=== PATIENT | female | born 1970 | race Two or more races ===

== ENCOUNTER 2017-11-14 15:29 | Emergency (ER) | payer SELFPAY ==
--- NOTE | 2017-11-14 16:27 | CR ---
Clinical history: 47-year-old female right hand swelling after injury. Interpretation: Soft tissue swelling over the ulnar aspect of the wrist. No sign of underlying fracture right wrist or hand. Early arthritic changes involving the interphalangeal/DIP joints. No foreign bodies or inflammatory p eriostitis. CONCLUSION: No fracture or dislocation right hand or wrist.
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
== END 2017-11-14 19:10 | disposition home or self-care (01) ==
LOC: DL.ED 15:29
DX: S67.21XA Crushing injury of right hand, initial encounter (principal); S63.610A Unspecified sprain of right index finger, initial encounter; J45.909 Unspecified asthma, uncomplicated; E11.40 Type 2 diabetes mellitus with diabetic neuropathy, unspecified; F41.9 Anxiety disorder, unspecified; I10 Essential (primary) hypertension; Z79.82 Long term (current) use of aspirin; Z79.899 Other long term (current) drug therapy; Y04.8XXA Assault by other bodily force, initial encounter; Y07.03 Male partner, perpetrator of maltreatment and neglect
CPT/HCPCS: 29125; 73130-RT; 99283

== ENCOUNTER 2017-11-16 00:17 | Emergency (ER) | payer SELFPAY ==
[2017-11-16] MEDS ORDERED: Acetaminophen/HYDROcodone 325-5 MG Tab PO ONE (01:07)
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
== END 2017-11-16 01:15 | disposition home or self-care (01) ==
LOC: DL.ED 00:17
DX: M79.641 Pain in right hand (principal); I10 Essential (primary) hypertension; E11.40 Type 2 diabetes mellitus with diabetic neuropathy, unspecified; Z79.82 Long term (current) use of aspirin
CPT/HCPCS: 99283; A9270

== ENCOUNTER 2017-12-28 09:34 | Emergency (ER) | payer MEDICAID ==
--- NOTE | 2017-12-28 09:43 | EDM.PDOC ---
ED HPI GENERAL MEDICAL PROBLEM - General Stated Complaint: [id number] RIGHT HAND/ARM PAIN SWOLLEN Time Seen by Provider: 12/28/17 10:23 Source of Information: Reports: Patient, RN, RN Notes Reviewed History Limitations: Reports: No Limitations - History of Present Illness INITIAL COMMENTS - FREE TEXT/NARRATIVE: Pt to ER with c/o burning pain in the right arm, hand, shoulder. She states she has had previous problems with pain in the hand and arm and is currently doctoring with Dr. Dunn for it. She states she has been moving furniture into an apartment this weekend and has done too much lifting with it. She states the pain is 8/10, and feels the wrist and hand are more swollen than usual. Patient states she has an upcoming appointment with Rheumatology. She states she has Voltaren and steroids prescribed from Dr. Dunn that she has been using and it has not been helping. Onset: Gradual Location: Reports: Upper Extremity, Right Quality: Reports: Burning Severity: Moderate Improves with: Reports: None Worsens with: Reports: None Right Wrist Pain Score (Numeric/FACES): 8 - Related Data Allergies Allergy/AdvReac Type Severity Reaction Status Date / Time No Known Allergies Allergy Verified 12/28/17 10:04 Home Meds: Home Meds Aspirin 1 tab PO DAILY 11/06/17 [History] Diclofenac Sodium [Voltaren] 1 appful TOP ASDIRECTED PRN 12/28/17 [History] QUEtiapine [SEROquel] 25 mg PO BEDTIME 12/28/17 [History] Sertraline [Zoloft] 25 mg PO DAILY 12/28/17 [History] Past Medical History Cardiovascular History: Reports: Hypertension 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: Reports: Asthma 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: Musculoskeletal History: Reports: RA Neurological History: Reports: Neuropathy, Diabetic Psychiatric History: Reports: Anxiety Endocrine/Metabolic History: Reports: Diabetes, Type II - Past Surgical History Female Surgical History: Reports: Section, Hysterectomy Musculoskeletal Surgical History: Reports: Arthroscopic Knee Other Musculoskeletal Surgeries/Procedures:: bilateral Social & Family History - Family History Family Medical History: Noncontributory - Caffeine Use Caffeine Use: Reports: None Review of Systems - Review of Systems Review Of Systems: ROS reveals no pertinent complaints other than HPI. ED EXAM, GENERAL - Physical Exam Exam: See Below Exam Limited By: No Limitations General Appearance: Alert, WD/WN, Mild Distress Eye Exam: Bilateral Eye: EOMI, Normal Inspection Ears: Normal External Exam Nose: Normal Inspection Throat/Mouth: Normal Inspection, Normal Voice, No Airway Compromise Head: Atraumatic, Normocephalic Neck: Normal Inspection, Supple, Non-Tender, Full Range of Motion Respiratory/Chest: No Respiratory Distress, Lungs Clear, Normal Breath Sounds, No Accessory Muscle Use, Chest Non-Tender Cardiovascular: Normal Peripheral Pulses, Regular Rate, Rhythm, No Edema, No Gallop, No JVD, No Murmur, No Rub Peripheral Pulses: 2+: Radial (L), Radial (R) GI/Abdominal: Normal Bowel Sounds, Soft, Non-Tender (Female) Exam: Deferred Rectal (Female) Exam: Deferred Back Exam: Normal Inspection, Full Range of Motion Extremities: Normal Inspection, No Pedal Edema, Normal Capillary Refill, Joint Swelling (right wrist), Arm Pain (right), Limited Range of Motion (right) Neurological: Alert, Oriented, CN II-XII Intact, Normal Cognition, Normal Gait, Normal Reflexes, No Motor/Sensory Deficits Psychiatric: Anxious Skin Exam: Warm, Dry, Intact, Normal Color, No Rash Lymphatic: No Adenopathy Course - Vital Signs Last Recorded V/S: Last Vital Signs Temp 97.8 F 12/28/17 10:00 Pulse 78 12/28/17 10:00 Resp 18 12/28/17 10:00 BP 107/57 L 12/28/17 10:00 Pulse Ox 100 12/28/17 10:00 Departure - Departure Time of Disposition: 10:49 Disposition: Home, Self-Care 01 Condition: Fair Clinical Impression: Nerve pain Pain in hand Qualifiers: Laterality: right Qualified Code(s): M79.641 - Pain in right hand - Discharge Information *PRESCRIPTION DRUG MONITORING PROGRAM REVIEWED*: Yes *COPY OF PRESCRIPTION DRUG MONITORING REPORT IN PATIENT LIANET: No Instructions: Neuropathic Pain, Joint Pain, [id number] Referrals: Nimo Dunn MD [Primary Care Provider] - Forms: ED Department Discharge Additional Instructions: RX: Gabapentin Follow up with Dr. Dunn this week. Rest, ice and heat as tolerated
== END 2017-12-28 11:05 | disposition home or self-care (01) ==
LOC: DL.ED 09:34
DX: M79.641 Pain in right hand (principal); M79.2 Neuralgia and neuritis, unspecified; I10 Essential (primary) hypertension; E11.40 Type 2 diabetes mellitus with diabetic neuropathy, unspecified
CPT/HCPCS: 99283

== ENCOUNTER 2018-02-08 17:01 | Emergency (ER) | payer MEDICAID ==
[2018-02-08 18:36] LABS: ANION GAP 12.7; CHLORIDE,CL 102 mmol/L (101-111); SODIUM,NA 137 mmol/L (135-145)
--- NOTE | 2018-02-08 18:46 | EDM.PDOC ---
<Margret Figueroa - Last Filed: 02/08/18 19:07> ED HPI GENERAL MEDICAL PROBLEM - General Chief Complaint: Upper Extremity Injury/Pain Stated Complaint: NEEDS TO HAVE FINGERS LOOKED AT [id number] Time Seen by Provider: 02/08/18 17:43 Source of Information: Reports: Patient, RN, RN Notes Reviewed History Limitations: Reports: No Limitations - History of Present Illness INITIAL COMMENTS - FREE TEXT/NARRATIVE: Pt to Er with c/o sores to middle and ring finger (left hand), middle and ring finger of right hand. Pt states on 01/17/18 she was seen in the ER and tx for trigger finger and the fingers were splinted. She was unable to be seen at [facility], and has an appt to be seen by hand surgeon. She states she has developed sores from the splint. Admits to fever, chills, nausea, dizziness. 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 rotator cuff Neurological History: Reports: Neuropathy, Diabetic Psychiatric History: Reports: Anxiety Endocrine/Metabolic History: Reports: Diabetes, Type II - Past Surgical History GI Surgical History: Reports: Appendectomy Female Surgical History: Reports: Section, Hysterectomy Musculoskeletal Surgical History: Reports: Arthroscopic Knee Other Musculoskeletal Surgeries/Procedures:: bilateral Social & Family History - Family History Family Medical History: Noncontributory - Tobacco Use Smoking Status *Q: Unknown Ever Smoked - Caffeine Use Caffeine Use: Reports: Coffee, Soda - Recreational Drug Use Recreational Drug Use: No Review of Systems - Review of Systems Review Of Systems: ROS reveals no pertinent complaints other than HPI. ED EXAM, GENERAL - Physical Exam Exam: See Below Exam Limited By: No Limitations General Appearance: Alert, WD/WN, No Apparent Distress Eye Exam: Bilateral Eye: EOMI, Normal Inspection Ears: Normal External Exam, Hearing Grossly Normal Nose: Normal Inspection Throat/Mouth: Normal Inspection, Normal Voice, No Airway Compromise Head: Atraumatic, Normocephalic Neck: Normal Inspection, Supple, Non-Tender, Full Range of Motion Respiratory/Chest: No Respiratory Distress, Lungs Clear, Normal Breath Sounds, No Accessory Muscle Use, Chest Non-Tender Cardiovascular: Normal Peripheral Pulses, Regular Rate, Rhythm, No Edema, No Gallop, No JVD, No Murmur, No Rub Peripheral Pulses: 2+: Radial (L), Radial (R) GI/Abdominal: Normal Bowel Sounds, Soft, Non-Tender (Female) Exam: Deferred Rectal (Female) Exam: Deferred Back Exam: Normal Inspection, Full Range of Motion Extremities: No Pedal Edema, Normal Capillary Refill, Limited Range of Motion ( middle and ring fingers of both hands) Neurological: Alert, Oriented, CN II-XII Intact, Normal Cognition, Normal Gait, Normal Reflexes, No Motor/Sensory Deficits Psychiatric: Normal Affect, Normal Mood Skin Exam: Warm, Dry, Intact, Normal Color, No Rash Lymphatic: No Adenopathy Course - Vital Signs Last Recorded V/S: Last Vital Signs Temp 36.6 C 02/08/18 17:41 Pulse 95 02/08/18 17:41 Resp 16 02/08/18 17:41 BP 117/83 02/08/18 17:41 Pulse Ox 100 02/08/18 17:41 - Orders/Labs/Meds Orders: Active Orders 24 hr Category Date Time Status CULTURE WOUND [RM] Urgent Lab 02/08/18 18:05 Received Labs: Laboratory Tests 02/08/18 02/08/18 Range/Units 18:04 18:04 WBC 6.1 (5.0-10.0) 10^3/uL RBC 4.03 L (4.2-5.4) 10^6/uL Hgb 13.2 (12.0-16.0) g/dL Hct 39.5 (37.0-47.0) % MCV 98.0 (80-100) fL MCH 32.8 (27.0-34.0) pg MCHC 33.4 (33.0-35.0) g/dL Plt Count 250 (150-450) 10^3/uL Neut % (Auto) 58.2 (42.2-75.2) % Lymph % (Auto) 30.4 (20.5-50.1) % [place] % (Auto) 10.0 H (2-8) % Eos % (Auto) 1.1 (1.0-3.0) % Baso % (Auto) 0.3 (0.0-1.0) % Sodium 137 (135-145) mmol/L Potassium 4.7 (3.6-5.0) mmol/L Chloride 102 (101-111) mmol/L Carbon Dioxide 27.0 (21.0-31.0) mmol/L Anion Gap 12.7 BUN 24 H (7-18) mg/dL Creatinine 0.7 (0.6-1.3) mg/dL Est Cr Clr Drug Dosing TNP Estimated GFR (MDRD) > 60 BUN/Creatinine Ratio 34.28 Glucose 115 H (74-105) mg/dL Calcium 8.8 (8.4-10.2) mg/dl Total Bilirubin 0.6 (0.2-1.0) mg/dL AST 16 (10-42) IU/L ALT 15 (10-60) IU/L Alkaline Phosphatase 59 (42-121) IU/L Total Protein 8.1 (6.7-8.2) g/dl Albumin 4.4 (3.2-5.5) g/dl Globulin 3.7 Albumin/Globulin Ratio 1.19 Meds: Medications Discontinued Medications Generic Name Dose Route Start Last Admin Trade Name Freq PRN Reason Stop Dose Admin Hydrocodone Bitart/Acetaminophen 1 tab 02/08/18 19:52 02/08/18 19:57 Edmond 325-10 Mg PO 02/08/18 19:53 1 tab ONETIME ONE Administration Clindamycin Phosphate 900 mg/ 106 mls @ 200 mls/hr 02/08/18 19:27 02/08/18 19 :47 Sodium Chloride IV 02/08/18 19:58 200 mls/hr ONETIME ONE Administration Departure - Departure Disposition: Home, Self-Care 01 Clinical Impression: Cellulitis of finger of left hand - Discharge Information Instructions: Cellulitis, Adult, [id number] Forms: ED Department Discharge Additional Instructions: 1) recheck Friday sooner if looks worse 2) keep wound clean dry covered rx given; clindamycin 150mg qid x 40 vicodin 5.325mg bid prn x 6 <Renzo Kern - Last Filed: 02/08/18 21:00> Course - Orders/Labs/Meds Meds: Medications Discontinued Medications Generic Name Dose Route Start Last Admin Trade Name Freq PRN Reason Stop Dose Admin Hydrocodone Bitart/Acetaminophen 1 tab 02/08/18 19:52 02/08/18 19:57 Edmond 325-10 Mg PO 02/08/18 19:53 1 tab ONETIME ONE Administration Clindamycin Phosphate 900 mg/ 106 mls @ 200 mls/hr 02/08/18 19:27 02/08/18 19 :47 Sodium Chloride IV 02/08/18 19:58 200 mls/hr ONETIME ONE Administration - Re-Assessments/Exams Free Text/Narrative Re-Assessment/Exam: 02/08/18 19:28 re-exam; left middle cellulitis, right hand with finger contractures. pt's PMD has referral to hand surgeon. 02/08/18 20:56 results discussed with pt. Departure - Departure Time of Disposition: 20:56 Condition: Good
[2018-02-08] MEDS ORDERED: Clindamycin Phosphate 900 MG in Sodium Chloride 0.9% 100 ML IV ONE (19:27)
[2018-02-08] MEDS ORDERED: Acetaminophen/HYDROcodone 325-10 MG Tab PO ONE (19:52)
== END 2018-02-08 21:10 | disposition home or self-care (01) ==
LOC: DL.ED 17:01
DX: L03.012 Cellulitis of left finger (principal); I10 Essential (primary) hypertension; J45.909 Unspecified asthma, uncomplicated; E11.40 Type 2 diabetes mellitus with diabetic neuropathy, unspecified; F41.9 Anxiety disorder, unspecified; Z79.82 Long term (current) use of aspirin; Z79.899 Other long term (current) drug therapy
CPT/HCPCS: 36415; 73130; 80053; 85025; 87070; 96365; 99284; A9270; J3490; J7050

== ENCOUNTER 2019-01-15 14:58 | Emergency (ER) | payer MEDICAID ==
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
== END 2019-01-15 16:05 | disposition home or self-care (01) ==
LOC: DL.ED 14:58
DX: S16.1XXA Strain of muscle, fascia and tendon at neck level, initial encounter (principal); F41.9 Anxiety disorder, unspecified; E11.40 Type 2 diabetes mellitus with diabetic neuropathy, unspecified; Z79.82 Long term (current) use of aspirin; Z79.899 Other long term (current) drug therapy; Y04.2XXA Assault by strike against or bumped into by another person, initial encounter
CPT/HCPCS: 72040; 99283-25

== ENCOUNTER 2019-02-06 22:29 | Emergency (ER) | payer MEDICAID, OTHER ==
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
== END 2019-02-07 01:20 | disposition home or self-care (01) ==
LOC: DL.ED 22:29
DX: T76.21XA Adult sexual abuse, suspected, initial encounter (principal)
CPT/HCPCS: 99283; 99284; 99285